=== PATIENT | female | born 1975 | race Caucasian/White ===

== ENCOUNTER → 2023-12-20 | Day surgery (SDC) | payer BC, OTHER | END | disposition home or self-care (01) | LOC: JRADIR 08:45 | PROVIDERS: ATTEND Orthopaedic Surgery Sports Medicine | PROC: BQ30YZZ Magnetic Resonance Imaging (MRI) of Right Hip using Other Contrast (ICD-10-PCS; principal; 2023-12-20) | DX: M25.551 Pain in right hip (principal) | CPT/HCPCS: 27093; 73525-TC-FY; 73722-TC; 77002-TC-FY; 84703 ==

== ENCOUNTER 2024-11-29 04:33 | Day surgery (SDC) | payer BC, OTHER ==
[2024-11-28 17:17] VITALS: BMI 33.8
[2024-11-29] MEDS ORDERED: ACETAMINOPHEN 500 MG TABLET (FP) PO PRN (09:15)
[2024-11-29 11:34] VITALS: RESP 18; TEMP 97.5
[2024-11-29] MEDS: LIDOCAINE HCL 1% PRESERVATIVE FREE - 30ML VIAL IJ ONE ×2 (12:44)
[2024-11-29] MEDS: BUPIVACAINE HCL/PF 0.25% (2.5MG/ML) 10 ML VIAL IJ ONE ×2 (12:45)
[2024-11-29] MEDS: TRIAMCINOLONE ACETONIDE 40 MG/ML 10 ML VIAL IJ ONE ×2 (12:46)
[2024-11-29] MEDS: IOHEXOL 180 MG/1 ML ML IJ ONE ×3 (12:46)
[2024-11-29 13:26] VITALS: BP 140/69; PULSE 72
== END 2024-11-29 13:31 | disposition home or self-care (01) ==
LOC: JASU-SURG 04:33
PROVIDERS: ATTEND Pain Medicine Pain Medicine
PROC: 3E0U3BZ Introduction of Anesthetic Agent into Joints, Percutaneous Approach (ICD-10-PCS; 2024-11-29)
PROC: 3E0U33Z Introduction of Anti-inflammatory into Joints, Percutaneous Approach (ICD-10-PCS; principal; 2024-11-29 14:15)
DX: M16.11 Unilateral primary osteoarthritis, right hip (principal)
CPT/HCPCS: 76000-TC-FY; 81025

== ENCOUNTER 2025-04-10 07:11 | Day surgery (SDC) | payer BC, OTHER ==
[2025-04-09 11:45] VITALS: BMI 33.8
[2025-04-10 11:18] VITALS: TEMP 97.7
[2025-04-10] MEDS: BUPIVACAINE HCL/PF 0.25% (2.5MG/ML) 10 ML VIAL IJ ONE (13:13)
[2025-04-10] MEDS: LIDOCAINE HCL 1% PRESERVATIVE FREE - 30ML VIAL IJ ONE (13:13)
[2025-04-10] MEDS: TRIAMCINOLONE ACETONIDE 40 MG/ML 10 ML VIAL IJ ONE (13:13)
[2025-04-10 14:36] VITALS: BP 138/83; PULSE 65; RESP 18
== END 2025-04-10 14:15 | disposition home or self-care (01) ==
LOC: JASU-SURG 07:11
PROVIDERS: ATTEND Pain Medicine Pain Medicine
PROC: 3E0U3BZ Introduction of Anesthetic Agent into Joints, Percutaneous Approach (ICD-10-PCS; 2025-04-10)
PROC: 3E0U33Z Introduction of Anti-inflammatory into Joints, Percutaneous Approach (ICD-10-PCS; principal; 2025-04-10 12:45)
DX: M16.12 Unilateral primary osteoarthritis, left hip (principal)
CPT/HCPCS: 76000-TC-FY; 81025